=== PATIENT | female | born 1975 | race Caucasian/White ===

== ENCOUNTER 2023-04-21 15:41 | Outpatient (CLI) | payer OTHER ==
--- NOTE | 2023-04-21 20:42 | Ultrasound Report ---
PROCEDURE: Pelvic w/Transvaginal INDICATIONS: AUB TECHNIQUE: Real-time scanning was performed of the pelvic organs, with image documentation. Additional endovagi nal scanning was necessary due to incomplete visualization of the adnexal and endometrial structures by transabdominal scanning. COMPARISON: None. FINDINGS: Uterus: Uterus is anteverted and enlarged at 11.9 x 7.8 x 7.4 cm. The myometrium is heterogeneous a nd contains fibroids. Small amount of fluid is seen within the endometrial canal. Endometrium is subj ectively within normal limits in thickness. The measured thickness includes a submucosal fibroid. Mul tiple fibroids are seen as follows: A left anterior transmural fibroid measures 2.6 x 3.2 x 3.1 cm. A midline posterior nearly completely submucosal fibroid measures 2.2 x 2.0 x 2.1 cm. A right posterior fundal intramural and subserosal fibroid measures 3.0 x 3.0 x 3.4 cm. Ovaries: The right ovary measures 2.5 x 2.3 x 2.1 cm, with a calculated ovarian volume of 6.2 cc. T he left ovary measures 7.3 x 6.4 x 5.3 cm, with a calculated ovarian volume of 129 cc. Adjacent simpl e right ovarian cysts are seen measuring 4.4 x 4.3 x 3.6 cm and 3.2 x 3.4 x 2.3 cm respectively, vers us a single septated cyst. No adnexal masses are seen. No cystic lesions measuring greater than 3 cm. Other: No pathologic free abdominal or pelvic fluid. IMPRESSION: 1.Multiple uterine fibroids are seen including a 2.2 cm submucosal fibroid. 2.Left ovary is enlarged by adjacent simple cysts versus a single septated cyst. Consider follow-up u ltrasound in 6-12 weeks to demonstrate resolution. Reviewed by: Kwabena Lopez MD on 04/21/2023 8:41 PM PDT Approved by: Kwabena Lopez MD on 04/21/2023 8:41 PM PDT Station ID: [id number]
== END 2023-04-21 15:42 | disposition home or self-care (01) ==
LOC: DI 15:41
PROVIDERS: ATTEND Student in an Organized Health Care Education/Training Program
DX: D25.0 Submucous leiomyoma of uterus (principal); D25.2 Subserosal leiomyoma of uterus; N83.202 Unspecified ovarian cyst, left side

== ENCOUNTER 2023-05-15 10:22 | Outpatient (CLI) | payer OTHER ==
[2023-05-15 10:32] LABS: BASOPHILS # (AUTO) 0.1 10^3/uL (0.0-0.1); BASOPHILS % (AUTO) 1.3 %; EOSINOPHILS # (AUTO) 0.1 10^3/uL (0.0-0.7); EOSINOPHILS % (AUTO) 1.8 %; HGB - HEMOGLOBIN 8.1 g/dL (12.0-16.0); LYMPHOCYTES # (AUTO) 1.3 10^3/uL (1.5-3.5); LYMPHOCYTES % (AUTO) 23.7 %; MEAN CORPUSCULAR HEMOGLOBIN 17.8 pg (27.0-31.0); MEAN CORPUSCULAR VOLUME 65.9 fL (81.0-99.0); MEAN PLATELET VOLUME 9.7 fL (7.9-10.8); MONOCYTES # (AUTO) 0.4 10^3/uL (0.0-1.0); MONOCYTES % (AUTO) 7.1 %; NEUTROPHILS # (AUTO) 3.6 10^3/uL (1.5-6.6); NEUTROPHILS % (AUTO) 65.7 %; PLT - PLATELET COUNT 302 10^3/uL (130-450); RED BLOOD COUNT 4.55 10^6/uL (4.20-5.40); RED CELL DISTRIBUTION WIDTH 19.8 % (12.0-15.0); WHITE BLOOD COUNT 5.5 x10^3/uL (4.8-10.8)
[2023-05-15 10:47] LABS: SLIDE REVIEW? Indicated
[2023-05-15 10:56] LABS: CA 125 22.4 U/mL (0.5-35.0)
[2023-05-15 11:00] LABS: THYROID STIMULATING HORMONE 0.94 uIU/mL (0.34-5.60)
[2023-05-15 11:01] LABS: PLATELET ESTIMATE, MANUAL NORMAL (130-450,000) (NORMAL); PLATELET MORPHOLOGY NORMAL APPEARANCE (NORMAL)
== END 2023-05-15 10:23 | disposition home or self-care (01) ==
LOC: LAB 10:22
PROVIDERS: ATTEND Obstetrics & Gynecology
DX: D50.0 Iron deficiency anemia secondary to blood loss (chronic) (principal); N92.0 Excessive and frequent menstruation with regular cycle; N83.201 Unspecified ovarian cyst, right side
CPT/HCPCS: 36415; 84443; 85025; 86304

== ENCOUNTER 2023-05-30 15:35 | Outpatient (CLI) | payer OTHER ==
[2023-05-30 16:00] LABS: HCT - HEMATOCRIT 30.3 % (37.0-47.0); HGB - HEMOGLOBIN 8.3 g/dL (12.0-16.0); MEAN CORPUSCULAR HEMOGLOBIN 18.1 pg (27.0-31.0); MEAN CORPUSCULAR HGB CONC 27.4 g/dL (32.0-36.0); MEAN CORPUSCULAR VOLUME 66.2 fL (81.0-99.0); MEAN PLATELET VOLUME 9.2 fL (7.9-10.8); NEUTROPHILS # (AUTO) 6.9 10^3/uL (1.5-6.6); NEUTROPHILS % (AUTO) 72.2 %; RED BLOOD COUNT 4.58 10^6/uL (4.20-5.40); RED CELL DISTRIBUTION WIDTH 20.5 % (12.0-15.0); WHITE BLOOD COUNT 9.5 x10^3/uL (4.8-10.8)
[2023-05-30 16:58] LABS: FERRITIN 3.9 ng/mL (11.0-306.8)
== END 2023-05-30 15:36 | disposition home or self-care (01) ==
LOC: LAB 15:35
PROVIDERS: ATTEND Internal Medicine Hematology & Oncology
DX: D50.9 Iron deficiency anemia, unspecified (principal)
CPT/HCPCS: 36415; 82728; 83540; 84466; 85027

== ENCOUNTER 2023-06-12 09:07 | Outpatient (CLI) | payer OTHER ==
--- NOTE | 2023-06-13 10:12 | Ultrasound Report ---
PROCEDURE: Pelvic w/Transvaginal INDICATIONS: AUB TECHNIQUE: Real-time scanning was performed of the pelvic organs, with image documentation. Additional endovagi nal scanning was necessary due to incomplete visualization of the adnexal and endometrial structures by transabdominal scanning. COMPARISON: Ultrasound, 04/13/2023. FINDINGS: Uterus: Uterus is anteverted and normal in size at 12.2 x 5.4 x 7.7 cm. The myometrium is homogeneo us. The endometrium measures 12.1 mm in combined thickness. There multiple uterine fibroids. -3.2 x 2.6 x 3.0 cm subserosal fibroid in the right posterior uterine wall; previously 3.0 x 3.0 x 3. 4 cm. -2.1 x 1.6 x 2.0 cm submucosal fibroid in the left anterior uterine wall; previously 2.2 x 2.0 x 2.1 cm. -2.3 x 2.4 x 2.5 cm intramural fibroid in the anterior wall at midline; previously 2.6 x 3.2 x 3.1 cm . Nabothian cysts noted in cervix. Ovaries: The right ovary measures 3.6 x 3.1 x 2.4 cm, with a calculated ovarian volume of 14.0 cc. The left ovary measures 4.1 x 3.1 x 3.5 cm, with a calculated ovarian volume of 23.3 cc. The ovaries have a normal sonographic appearance. Less than 12 follicles can be seen in each ovary. There is a 1.8 x 1.5 x 2.0 cm simple cyst in right ovary, likely a dominant follicle. A 2.3 x 2.0 x 2.2 cm comp jacque cyst is seen in left ovary. In addition, there is a 2.3 x 1.2 x 1.0 cm simple appearing cyst in t he left ovary. Other: No pathologic free abdominal or pelvic fluid. IMPRESSION: 1. Uterus is enlarged and contains multiple uterine fibroids. Fibroids are overall unchanged in size. 2. Left ovary is enlarged. Previously seen large cyst with septation is no longer seen. There is a n ew 2.3 x 2.2 x 2.2 cm complex cyst in left ovary suggesting a hemorrhagic cyst. Consider a PA ultraso und in 6-12 weeks. Reviewed by: Oliver Savage MD on 06/13/2023 10:11 AM PDT Approved by: Oliver Savage MD on 06/13/2023 10:11 AM PDT Station ID: [id number]
== END 2023-06-12 09:08 | disposition home or self-care (01) ==
LOC: DI 09:07
PROVIDERS: ATTEND Nurse Practitioner Family
DX: N93.9 Abnormal uterine and vaginal bleeding, unspecified (principal); D25.9 Leiomyoma of uterus, unspecified; N83.8 Other noninflammatory disorders of ovary, fallopian tube and broad ligament; N83.292 Other ovarian cyst, left side